=== PATIENT | female | born 1975 | race Caucasian/White ===

== ENCOUNTER 2018-10-18 14:48 | Inpatient (IN) | payer OTHER ==
[2018-10-18 15:30] VITALS: BMI 25.0
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
[2018-10-18] MEDS ORDERED: MAGNESIUM CITRATE 300 ML BOTTLE PO PRN (17:14)
[2018-10-18] MEDS ORDERED: P-EPHED 60MG/TRIPROLIDI 2.5MG TABLET PO PRN (17:14)
[2018-10-18] MEDS ORDERED: MAG HYDROX/AL HYDROX/SIMETH 30 ML UNIT-DOSE CUP PO PRN (17:14)
[2018-10-18] MEDS ORDERED: MAGNESIUM HYDROX 2400MG/30ML ORAL SUSPENSION 30 ML CUP PO PRN (17:14)
[2018-10-18] MEDS ORDERED: MENTHOL/PHENOL 1 EACH UD MM PRN (17:14)
[2018-10-18] MEDS: MELATONIN 5 MG TABLETS PO PRN (21:47)
[2018-10-18] MEDS: THIAMINE HCL 100 MG TABLET (FP) PO SCH (21:50)
[2018-10-19 09:09] LABS: URINE APPEARANCE CLEAR; URINE BILIRUBIN NEGATIVE (NEGATIVE); URINE COLOR YELLOW; URINE GLUCOSE (UA) NEGATIVE (NEGATIVE); URINE KETONE NEGATIVE (NEGATIVE); URINE LEUK ESTERASE NEGATIVE (NEGATIVE); URINE NITRITE NEGATIVE (NEGATIVE); URINE PROTEIN NEGATIVE (NEGATIVE); URINE UROBILINOGEN 0.2 mg/dL (0.2-1.0)
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
[2018-10-19] MEDS ORDERED: PARoxetine HCL 30 MG TABLET PO SCH ×2 (10:15)
[2018-10-19] MEDS: QUEtiapine FUMARATE 100 MG TABLET (FP) PO SCH ×2 (11:15→11:58)
[2018-10-19 11:43] LABS: HEMATOCRIT 35.3 % (32.4-45.2); HEMOGLOBIN 11.6 GM/dL (10.7-15.3); MCH 28.1 pg (25.7-33.7); MCHC 32.8 g/dl (32.0-36.0); MEAN CELL VOLUME 85.7 fl (80-96); MEAN PLT VOLUME 7.9 fl (7.5-11.1); PLATELET COUNT 375 K/MM3 (134-434); RBC 4.12 M/mm3 (3.60-5.2); RDW 16.4 % (11.6-15.6); WHITE BLOOD COUNT 11.6 K/mm3 (4.0-10.0)
[2018-10-19] MEDS ORDERED: PARoxetine HCL 20 MG TABLET ONE (11:45)
[2018-10-19] MEDS ORDERED: PARoxetine HCL 10 MG TABLET ONE (11:45)
[2018-10-19 11:49] LABS: ALBUMIN 3.6 g/dl (3.4-5.0); BILIRUBIN,TOTAL 0.2 mg/dL (0.2-1); BLOOD UREA NITROGEN 7.2 mg/dL (7-18); CALCIUM 8.6 mg/dL (8.5-10.1); CREATININE 0.8 mg/dL (0.55-1.3); POTASSIUM 3.4 mmol/L (3.5-5.1); TOT PROT 6.7 g/dl (6.4-8.2)
[2018-10-19] MEDS: PAROXETINE HCL 10 MG, PAROXETINE HCL 20 MG PO SCH (11:58)
[2018-10-19] MEDS: PRENATAL VITAMINS W/ FOLIC ACID TABLET (FP) PO SCH (11:58)
[2018-10-19] MEDS ORDERED: POTASSIUM CHLORIDE ORAL LIQUID 20 MEQ/15 ML PO ONE (18:00)
[2018-10-19] MEDS: THIAMINE HCL 100 MG TABLET (FP) PO SCH (21:28)
[2018-10-19] MEDS ORDERED: QUEtiapine FUMARATE 100 MG TABLET (FP) ONE (21:29)
[2018-10-19] MEDS: QUEtiapine FUMARATE 300 MG TABLET PO SCH (21:30)
[2018-10-20] MEDS ORDERED: PARoxetine HCL 10 MG TABLET ONE (08:31)
[2018-10-20] MEDS ORDERED: PARoxetine HCL 20 MG TABLET ONE (08:31)
[2018-10-20] MEDS: PAROXETINE HCL 10 MG, PAROXETINE HCL 20 MG PO SCH (09:00)
[2018-10-20] MEDS: QUEtiapine FUMARATE 100 MG TABLET (FP) PO SCH (09:00)
[2018-10-20] MEDS: PRENATAL VITAMINS W/ FOLIC ACID TABLET (FP) PO SCH (09:00)
[2018-10-20 10:11] LABS: POTASSIUM 3.9 mmol/L (3.5-5.1)
--- NOTE | 2018-10-20 21:16 | PN ---
[facility] Progress Note Note: Psychiatry Attending's note (follow-up) : Case endorsed to typewriter tester on 10/19/18. By psychiatric nurse practitioner, Jaspal Antoine. Chart reviewed. Spoke via telephone with the patient. Conversation witnessed by [id number] female staff. Ms Bates confirms her diagnosis of bipolar disorder. Reports treatment with lithium for past three years. Admits to sporadic adherence to that medication. " I take it for one month, then I stop for a month or two and start again." Patient reports also that she " doubles up to make up " for missed doses. This practice has resulted in an episode of lithium toxicity last month. Which requires admission to the medical unit. [place] level belem to 2.5 (self- report). Ms Bates sees a private psychiatrist, Dr Evangelista, in [facility]. She indicates that she is on a regimen of lithium 300 mg po tid. Side effects/benefits of lithotherapy : discussed with patient. Made aware of risk of renal dysfunction, alopecia areata, weight gain, hypothyroidism. Reminded of importance of STRICT adherence and serious consequences inherent to lithium toxicity. Patient expresses reluctance about restarting the drug and requests education about alternate mood stabilizers. Currently lithium level = 0.5 and potassium level back to normal range (K=3.5). Normal renal function (current BMP). Patient agrees to have TFTS in AM (no prior study). Thyroid function tests : ordered. Li is held (patient's request). Will follow.
[2018-10-20] MEDS: THIAMINE HCL 100 MG TABLET (FP) PO SCH (21:27)
[2018-10-20] MEDS: QUEtiapine FUMARATE 300 MG TABLET PO SCH (21:27)
[2018-10-21] MEDS ORDERED: PARoxetine HCL 10 MG TABLET ONE (08:28)
[2018-10-21] MEDS ORDERED: PARoxetine HCL 20 MG TABLET ONE (08:28)
[2018-10-21] MEDS: PRENATAL VITAMINS W/ FOLIC ACID TABLET (FP) PO SCH (10:18)
[2018-10-21] MEDS: QUEtiapine FUMARATE 100 MG TABLET (FP) PO SCH (10:18)
[2018-10-21] MEDS: PAROXETINE HCL 10 MG, PAROXETINE HCL 20 MG PO SCH (10:18)
[2018-10-21] MEDS: QUEtiapine FUMARATE 300 MG TABLET PO SCH (21:28)
[2018-10-21] MEDS: THIAMINE HCL 100 MG TABLET (FP) PO SCH (21:28)
[2018-10-22] MEDS ORDERED: PARoxetine HCL 10 MG TABLET ONE (08:52)
[2018-10-22] MEDS ORDERED: PARoxetine HCL 20 MG TABLET ONE (08:52)
[2018-10-22] MEDS: QUEtiapine FUMARATE 100 MG TABLET (FP) PO SCH (10:01)
[2018-10-22] MEDS: PRENATAL VITAMINS W/ FOLIC ACID TABLET (FP) PO SCH (10:01)
[2018-10-22] MEDS: PAROXETINE HCL 10 MG, PAROXETINE HCL 20 MG PO SCH (10:01)
[2018-10-22] MEDS: THIAMINE HCL 100 MG TABLET (FP) PO SCH (21:19)
[2018-10-22] MEDS: QUEtiapine FUMARATE 300 MG TABLET PO SCH (21:19)
[2018-10-23] MEDS ORDERED: PARoxetine HCL 10 MG TABLET ONE (09:00)
[2018-10-23] MEDS ORDERED: PARoxetine HCL 20 MG TABLET ONE (09:01)
[2018-10-23] MEDS: QUEtiapine FUMARATE 100 MG TABLET (FP) PO SCH (10:09)
[2018-10-23] MEDS: PRENATAL VITAMINS W/ FOLIC ACID TABLET (FP) PO SCH (10:09)
[2018-10-23] MEDS: PAROXETINE HCL 10 MG, PAROXETINE HCL 20 MG PO SCH (10:09)
--- NOTE | 2018-10-23 10:27 | PN ---
Psychiatric Progress Note Vital Signs: Vital Signs Period Temp Pulse Resp BP Sys/Mendoza Pulse Ox Last 24 Hr 97.6 F 99 17-18 111/69 Date of Session: 10/23/18 Chief Complaint:: " i want to restart my lithium" HPI: Patient reports feeling stable but a "bit hyper". ROS: Patient coherent, alert and oriented X3. Current Medications: Active Medications Generic Name Dose Route Start Last Admin Trade Name Freq PRN Reason Stop Dose Admin Acetaminophen 650 mg 10/18/18 17:14 Tylenol - PO Q4H PRN FEVER Al Hydroxide/Mg Hydroxide 30 ml 10/18/18 17:14 Mylanta Oral Suspension - PO Q6H PRN DYSPEPSIA Eucalyptus/Menthol/Phenol/Sorbitol 1 each 10/18/18 17:14 Cepastat Lozenge - MM Q4H PRN SORE THROAT Hydroxyzine Pamoate 50 mg 10/18/18 17:14 Vistaril - PO Q4H PRN AGITATION Ibuprofen 400 mg 10/18/18 17:14 Motrin - PO Q6H PRN Pain level 4-6 Magnesium Citrate 300 ml 10/18/18 17:14 Citroma - PO Q48H PRN CONSTIPATION Magnesium Hydroxide 30 ml 10/18/18 17:14 Milk Of Magnesia - PO DAILY PRN CONSTIPATION Melatonin 5 mg 10/18/18 22:00 10/18/18 21:47 Melatonin PO 5 mg HS PRN Administration INSOMNIA Nicotine Polacrilex 2 mg 10/18/18 17:14 Nicorette Gum - BC Q2H PRN NICOTINE REPLACEMENT RX Paroxetine HCl 10 mg/ 30 mg 10/19/18 10:45 10/23/18 10:09 Paroxetine HCl 20 mg PO 30 mg DAILY PAT Administration Multivit/Folic Acid/Iron 1 tab 10/19/18 10:00 10/23/18 10:09 Vitamins (Sjr) - PO 1 tab DAILY PAT Administration Pseudoephedrine/Triprolidine 1 combo 10/18/18 17:14 Actifed - PO TID PRN NASAL CONGESTION Quetiapine Fumarate 100 mg 10/19/18 10:45 10/23/18 10:09 Seroquel - PO 100 mg DAILY PAT Administration Quetiapine Fumarate 300 mg 10/19/18 22:00 10/22/18 21:19 Seroquel - PO 300 mg HS PAT Administration Thiamine HCl 100 mg 10/18/18 22:00 10/22/18 21:19 Vitamin B1 - PO 100 mg HS PAT Administration Medication(s) Change(s): Yes. Current Side Effect: No Lab tests ordered: No Lab tests reviewed: Yes Provider note:: Patient with a history of alcohol dependence comorbid bipolar disorder. Patient seen by video games storywriter on 10/19/18 and was resumed on Paxil 30mg daily + seroquel 100mg daily + 300 HS. Edon was held due to pending lithium level and potassium level of 3.4. Edon level on 10/20 was 0.5 and potassium level was addressed by the medical team. Potassium level on 10/20/[address] Bella note read and appreciated. As per Dr. Bella's note, patient was relucatant to resume lithium. Today patient is requesting to resume lithium. Patient educated on the benefits and side effects of lithium (Made aware of risk of renal dysfunction, alopecia areata, weight gain, hypothyroidism). Patient also informed of the importance of Strict medication adherence. Will resume lithium 300mg BID (patient is prescribed lithium 300mg TID by provider. Dosages to be increase if current dose is tolerated). Will also d/c seroquel 100mg daily and order Seroquel 200mg daily ( patient is prescribed seroquel 300mg BID but due to nonadherence dosages were adjusted). Benefits and side effects discussed. Verbal consent given. Total face to face time:: 30 Mental Status Exam - Mental Status Exam Alert and Oriented to: Time, Place, Person Cognitive Function: Good Patient Appearance: Well Groomed Mood: Euthymic Affect: Appropriate Patient Behavior: Cooperative Speech Pattern: Appropriate Voice Loudness: Normal Thought Process: Goal Oriented Thought Disorder: Not Present Hallucinations: Denies Suicidal Ideation: Denies Homicidal Ideation: Denies Insight/Judgement: Poor Sleep: Fair Appetite: Fair Muscle strength/Tone: Normal Gait/Station: Normal Psychiatric Treatment Plan - Problem List (1) Alcohol dependence Current Visit: Yes (2) Bipolar disorder Current Visit: Yes
[2018-10-23] MEDS ORDERED: LITHIUM 300 MG PO SCH (10:45)
[2018-10-23] MEDS: LITHIUM CARBONATE 300 MG CAPSULE (FP) PO SCH ×2 (12:21→21:28)
[2018-10-23] MEDS: NICOTINE 21 MG/24 HOURS TOPICAL PATCH TD SCH (12:22)
[2018-10-23] MEDS: QUEtiapine FUMARATE 300 MG TABLET PO SCH (21:28)
[2018-10-23] MEDS: THIAMINE HCL 100 MG TABLET (FP) PO SCH (21:28)
[2018-10-24] MEDS ORDERED: PARoxetine HCL 10 MG TABLET ONE (08:50)
[2018-10-24] MEDS ORDERED: PARoxetine HCL 20 MG TABLET ONE (08:51)
[2018-10-24] MEDS: NICOTINE 21 MG/24 HOURS TOPICAL PATCH TD SCH (09:33)
[2018-10-24] MEDS: PRENATAL VITAMINS W/ FOLIC ACID TABLET (FP) PO SCH (09:33)
[2018-10-24] MEDS: QUEtiapine FUMARATE 200 MG TABLET PO SCH (09:33)
[2018-10-24] MEDS: PAROXETINE HCL 10 MG, PAROXETINE HCL 20 MG PO SCH (09:33)
[2018-10-24] MEDS: LITHIUM CARBONATE 300 MG CAPSULE (FP) PO SCH ×2 (09:33→21:24)
--- NOTE | 2018-10-24 13:28 | PN ---
S Progress Note Note: PATIENT SEEN TO DISCUSS VIVITROL MAT. PATIENT STATES HAS HX OF ETOH USE DISORDER SINCE AGE 31 AND DRINKS UP TO 2 PINTS OF LIQUOR DAILY. PRESENTS ON
--- NOTE | 2018-10-24 14:23 | PN ---
[facility] Progress Note Note: Patient seen for request to start Vivitrol MAT for ETOH dependence. Patient states she starting drinking ETOH age 31 and drinks up to 2 pints of Vodka daily. Patient denies hx of seizures, falls. Reports hx of blackouts. Patient was admitted to rehab on 10/18/18 and is interested in Vivitrol treatment. Patient explained medication dose, side effects, monitoring and protocol procedure for initiating Vivitrol. Patient to be linked to outpatient program in [place], [place] prior to starting Naloxone challenge and referred to Counselor, Penelope. KASSIDY Laguna updated on discussion with patient. Provider to follow up with patient once connection to outpatient program made. Laboratory Tests 10/18/18 10/18/18 10/19/18 08:55 16:50 08:30 WBC RBC Hgb Hct MCV MCH MCHC RDW Plt Count MPV Sodium 138 Potassium 3.4 L Chloride 108 H Carbon Dioxide 21 Anion Gap 10 BUN 7.2 Creatinine 0.8 Est GFR (CKD-EPI)AfAm 103.19 Est GFR (CKD-EPI)NonAf 89.04 Random Glucose 119 H Calcium 8.6 Total Bilirubin 0.2 AST 11 L ALT 23 Alkaline Phosphatase 84 Total Protein 6.7 Albumin 3.6 TSH Urine Color Yellow Urine Appearance Clear Urine pH 8.0 Ur Specific [place] 1.009 L Urine Protein Negative Urine Glucose (UA) Negative Urine Ketones Negative Urine Blood Negative Urine Nitrite Negative Urine Bilirubin Negative Urine Urobilinogen 0.2 Ur Leukocyte Esterase Negative POC Urine HCG, Qual Negative Kief RPR Titer 10/19/18 10/19/18 10/19/18 08:30 08:40 09:30 WBC 11.6 H RBC 4.12 Hgb 11.6 Hct 35.3 MCV 85.7 MCH 28.1 MCHC 32.8 RDW 16.4 H Plt Count 375 MPV 7.9 Sodium Potassium Chloride Carbon Dioxide Anion Gap BUN Creatinine Est GFR (CKD-EPI)AfAm Est GFR (CKD-EPI)NonAf Random Glucose Calcium Total Bilirubin AST ALT Alkaline Phosphatase Total Protein Albumin TSH Urine Color Urine Appearance Urine pH Ur Specific [place] Urine Protein Urine Glucose (UA) Urine Ketones Urine Blood Urine Nitrite Urine Bilirubin Urine Urobilinogen Ur Leukocyte Esterase POC Urine HCG, Qual Kief 0.5 L RPR Titer Nonreactive 10/20/18 10/21/18 07:50 05:50 WBC RBC Hgb Hct MCV MCH MCHC RDW Plt Count MPV Sodium Potassium 3.9 Chloride Carbon Dioxide Anion Gap BUN Creatinine Est GFR (CKD-EPI)AfAm Est GFR (CKD-EPI)NonAf Random Glucose Calcium Total Bilirubin AST ALT Alkaline Phosphatase Total Protein Albumin TSH 2.18 Cancelled Urine Color Urine Appearance Urine pH Ur Specific [place] Urine Protein Urine Glucose (UA) Urine Ketones Urine Blood Urine Nitrite Urine Bilirubin Urine Urobilinogen Ur Leukocyte Esterase POC Urine HCG, Qual Kief RPR Titer Vital Signs Temperature 97.8 F 10/24/18 07:14 Pulse Rate 98 H 10/24/18 07:14 Respiratory Rate 18 10/24/18 07:14 Blood Pressure 135/81 10/24/18 07:14 O2 Sat by Pulse Oximetry (%)
--- NOTE | 2018-10-24 18:11 | PN ---
Psychiatric Progress Note Vital Signs: Vital Signs Period Temp Pulse Resp BP Sys/Mendoza Pulse Ox Last 24 Hr 97.8 F 98 18-18 135/81 Date of Session: 10/24/18 Chief Complaint:: " Increase in Carlos" HPI: Patient admitted to 3E for alcohol dependence co-morbid bipolar disorder. ROS: Patient coherent, alert and oriented X3. Current Medications: Active Medications Generic Name Dose Route Start Last Admin Trade Name Freq PRN Reason Stop Dose Admin Acetaminophen 650 mg 10/18/18 17:14 Tylenol - PO Q4H PRN FEVER Al Hydroxide/Mg Hydroxide 30 ml 10/18/18 17:14 Mylanta Oral Suspension - PO Q6H PRN DYSPEPSIA Eucalyptus/Menthol/Phenol/Sorbitol 1 each 10/18/18 17:14 Cepastat Lozenge - MM Q4H PRN SORE THROAT Hydroxyzine Pamoate 50 mg 10/18/18 17:14 Vistaril - PO Q4H PRN AGITATION Ibuprofen 400 mg 10/18/18 17:14 Motrin - PO Q6H PRN Pain level 4-6 [place] Carbonate 300 mg 10/23/18 11:15 10/24/18 09:33 Eskalith - PO 300 mg BID PAT Administration Magnesium Citrate 300 ml 10/18/18 17:14 Citroma - PO Q48H PRN CONSTIPATION Magnesium Hydroxide 30 ml 10/18/18 17:14 Milk Of Magnesia - PO DAILY PRN CONSTIPATION Melatonin 5 mg 10/18/18 22:00 10/18/18 21:47 Melatonin PO 5 mg HS PRN Administration INSOMNIA Nicotine 21 mg 10/23/18 10:00 10/24/18 09:33 Nicoderm Patch - TD 21 mg DAILY PAT Administration Nicotine Polacrilex 2 mg 10/18/18 17:14 Nicorette Gum - BC Q2H PRN NICOTINE REPLACEMENT RX Paroxetine HCl 10 mg/ 30 mg 10/19/18 10:45 10/24/18 09:33 Paroxetine HCl 20 mg PO 30 mg DAILY PAT Administration Multivit/Folic Acid/Iron 1 tab 10/19/18 10:00 10/24/18 09:33 Vitamins (Sjr) - PO 1 tab DAILY PAT Administration Pseudoephedrine/Triprolidine 1 combo 10/18/18 17:14 Actifed - PO TID PRN NASAL CONGESTION Quetiapine Fumarate 300 mg 10/19/18 22:00 10/23/18 21:28 Seroquel - PO 300 mg HS PAT Administration Quetiapine Fumarate 200 mg 10/24/18 10:00 10/24/18 09:33 Seroquel - PO 200 mg DAILY PAT Administration Thiamine HCl 100 mg 10/18/18 22:00 10/23/18 21:28 Vitamin B1 - PO 100 mg HS PAT Administration Medication(s) Change(s): Yes. Current Side Effect: No Lab tests ordered: No Lab tests reviewed: Yes Provider note:: Patient able to tolerate current psychotropic medication regiman of seroquel 200mg daily + 300mg HS + [place] 300mg BID. Patient is coherent, alert and oriented X3. No oversedation noted. Patient in agreement to increase in evening lithium dose to 600mg HS. Patient is prescribed lithium 300mg TID by outside provider. Will order lithium level for 10/27/18. Benefits and side effects discussed. Verbal consent given. Total face to face time:: 25 Mental Status Exam - Mental Status Exam Alert and Oriented to: Time, Place, Person Cognitive Function: Good Patient Appearance: Well Groomed Mood: Euthymic Affect: Mood Congruent Patient Behavior: Appropriate, Cooperative Speech Pattern: Appropriate Voice Loudness: Normal Thought Process: Goal Oriented Thought Disorder: Not Present Hallucinations: Denies Suicidal Ideation: Denies Homicidal Ideation: Denies Insight/Judgement: Poor Sleep: Fair Appetite: Fair Muscle strength/Tone: Normal Gait/Station: Normal Psychiatric Treatment Plan - Problem List (1) Alcohol dependence Current Visit: Yes (2) Bipolar disorder Current Visit: Yes
[2018-10-24] MEDS: THIAMINE HCL 100 MG TABLET (FP) PO SCH (21:23)
[2018-10-24] MEDS: QUEtiapine FUMARATE 300 MG TABLET PO SCH (21:23)
[2018-10-24] MEDS: hydrOXYzine PAMOATE 50 MG CAPSULE (FP) PO PRN (21:24)
[2018-10-25] MEDS: hydrOXYzine PAMOATE 50 MG CAPSULE (FP) PO PRN ×2 (06:12→16:02)
[2018-10-25] MEDS: IBUPROFEN 400 MG TABLET (FP) PO PRN ×2 (08:39→22:07)
[2018-10-25] MEDS ORDERED: PARoxetine HCL 10 MG TABLET ONE (08:53)
[2018-10-25] MEDS ORDERED: PARoxetine HCL 20 MG TABLET ONE (08:53)
[2018-10-25] MEDS: PAROXETINE HCL 10 MG, PAROXETINE HCL 20 MG PO SCH (09:47)
[2018-10-25] MEDS: LITHIUM CARBONATE 300 MG CAPSULE (FP) PO SCH ×2 (09:47→21:17)
[2018-10-25] MEDS: NICOTINE 21 MG/24 HOURS TOPICAL PATCH TD SCH (09:47)
[2018-10-25] MEDS: PRENATAL VITAMINS W/ FOLIC ACID TABLET (FP) PO SCH (09:47)
[2018-10-25] MEDS: QUEtiapine FUMARATE 200 MG TABLET PO SCH (09:47)
[2018-10-25] MEDS: NICOTINE POLACRILEX 2 MG GUM BC PRN (19:41)
[2018-10-25] MEDS: THIAMINE HCL 100 MG TABLET (FP) PO SCH (21:17)
[2018-10-25] MEDS: QUEtiapine FUMARATE 300 MG TABLET PO SCH (21:17)
[2018-10-26] MEDS: hydrOXYzine PAMOATE 50 MG CAPSULE (FP) PO PRN ×5 (00:42→19:03)
[2018-10-26] MEDS: NICOTINE POLACRILEX 2 MG GUM BC PRN ×5 (00:43→22:19)
[2018-10-26] MEDS: IBUPROFEN 400 MG TABLET (FP) PO PRN (04:27)
[2018-10-26] MEDS ORDERED: PARoxetine HCL 10 MG TABLET ONE (08:43)
[2018-10-26] MEDS ORDERED: PARoxetine HCL 20 MG TABLET ONE (08:43)
[2018-10-26] MEDS: NICOTINE 21 MG/24 HOURS TOPICAL PATCH TD SCH (09:10)
[2018-10-26] MEDS: LITHIUM CARBONATE 300 MG CAPSULE (FP) PO SCH ×2 (09:10→21:03)
[2018-10-26] MEDS: PAROXETINE HCL 10 MG, PAROXETINE HCL 20 MG PO SCH (09:11)
[2018-10-26] MEDS: PRENATAL VITAMINS W/ FOLIC ACID TABLET (FP) PO SCH (09:11)
[2018-10-26] MEDS: QUEtiapine FUMARATE 200 MG TABLET PO SCH (09:11)
--- NOTE | 2018-10-26 14:23 | PN ---
[facility] Progress Note (SOAP) Subjective: Patient seen for further discussion about starting Vivitrol MAT for ETOH dependence. Reports hx of blackouts. Patient was admitted to rehab on 10/18/18 and is interested in Vivitrol treatment. Objective: A+O x3, no neurological deficits noted. Abd soft, non-tender, non-distended, liver non-palpable. 10/26/18 14:23 CBC, BMP 10/19/18 08:40 10/20/18 07:50 Vital Signs (72 hours) 10/24/18 10/24/18 10/24/18 00:30 03:30 07:14 Temperature 97.8 F Pulse Rate 98 H Respiratory 18 18 18 Rate Blood Pressure 135/81 10/25/18 10/25/18 10/25/18 03:30 07:01 09:13 Temperature 97.8 F Pulse Rate 99 H 125 H Respiratory 18 18 18 Rate Blood Pressure 112/75 107/74 10/26/18 10/26/18 03:30 07:08 Temperature 98.0 F Pulse Rate 110 H Respiratory 18 18 Rate Blood Pressure 108/75 10/26/18 14:24 Assessment: ETOH Dependence. 10/26/18 14:24 Plan: This provider explained medication dose, side effects, monitoring and protocol procedure for initiating Vivitrol. Patient needs to be linked to outpatient program in [place], [place] prior to starting Naloxone challenge; Counselor, Penelope to meet with patient today. KASSIDY Laguna updated on discussion with patient. Provider to follow up with patient once connection to outpatient program made, possibly Monday, 10/29.
[2018-10-26] MEDS: QUEtiapine FUMARATE 300 MG TABLET PO SCH (21:02)
[2018-10-26] MEDS: THIAMINE HCL 100 MG TABLET (FP) PO SCH (21:02)
[2018-10-26] MEDS: ACETAMINOPHEN 325 MG TABLET (FP) PO PRN (22:18)
[2018-10-27] MEDS: hydrOXYzine PAMOATE 50 MG CAPSULE (FP) PO PRN ×3 (04:13→16:46)
[2018-10-27] MEDS: NICOTINE POLACRILEX 2 MG GUM BC PRN ×3 (04:14→16:46)
[2018-10-27] MEDS: IBUPROFEN 400 MG TABLET (FP) PO PRN (08:46)
[2018-10-27] MEDS ORDERED: PARoxetine HCL 10 MG TABLET ONE (09:13)
[2018-10-27] MEDS ORDERED: PARoxetine HCL 20 MG TABLET ONE (09:13)
[2018-10-27] MEDS: NICOTINE 21 MG/24 HOURS TOPICAL PATCH TD SCH (10:08)
[2018-10-27] MEDS: QUEtiapine FUMARATE 200 MG TABLET PO SCH (10:08)
[2018-10-27] MEDS: PRENATAL VITAMINS W/ FOLIC ACID TABLET (FP) PO SCH (10:08)
[2018-10-27] MEDS: PAROXETINE HCL 10 MG, PAROXETINE HCL 20 MG PO SCH (10:09)
[2018-10-27] MEDS: LITHIUM CARBONATE 300 MG CAPSULE (FP) PO SCH ×2 (10:09→21:34)
[2018-10-27] MEDS: THIAMINE HCL 100 MG TABLET (FP) PO SCH (21:34)
[2018-10-27] MEDS: QUEtiapine FUMARATE 300 MG TABLET PO SCH (21:35)
[2018-10-28] MEDS: hydrOXYzine PAMOATE 50 MG CAPSULE (FP) PO PRN ×2 (04:43→09:52)
[2018-10-28] MEDS: NICOTINE POLACRILEX 2 MG GUM BC PRN ×3 (04:44→13:33)
[2018-10-28] MEDS: IBUPROFEN 400 MG TABLET (FP) PO PRN ×2 (07:40→13:32)
[2018-10-28] MEDS ORDERED: PARoxetine HCL 10 MG TABLET ONE (08:52)
[2018-10-28] MEDS ORDERED: PARoxetine HCL 20 MG TABLET ONE (08:52)
[2018-10-28] MEDS: PRENATAL VITAMINS W/ FOLIC ACID TABLET (FP) PO SCH (09:51)
[2018-10-28] MEDS: PAROXETINE HCL 10 MG, PAROXETINE HCL 20 MG PO SCH (09:51)
[2018-10-28] MEDS: NICOTINE 21 MG/24 HOURS TOPICAL PATCH TD SCH (09:51)
[2018-10-28] MEDS: QUEtiapine FUMARATE 200 MG TABLET PO SCH (09:52)
[2018-10-28] MEDS: LITHIUM CARBONATE 300 MG CAPSULE (FP) PO SCH ×2 (09:52→21:29)
[2018-10-28] MEDS: THIAMINE HCL 100 MG TABLET (FP) PO SCH (21:29)
[2018-10-28] MEDS: QUEtiapine FUMARATE 300 MG TABLET PO SCH (21:30)
[2018-10-28] MEDS ORDERED: PT OWN MED DRAWER 7, Y5N ONE (21:55)
[2018-10-29] MEDS: IBUPROFEN 400 MG TABLET (FP) PO PRN ×2 (01:19→09:06)
[2018-10-29] MEDS: hydrOXYzine PAMOATE 50 MG CAPSULE (FP) PO PRN ×2 (01:19→09:06)
[2018-10-29] MEDS: NICOTINE POLACRILEX 2 MG GUM BC PRN ×2 (04:43→09:58)
[2018-10-29] MEDS ORDERED: PARoxetine HCL 10 MG TABLET ONE (08:31)
[2018-10-29] MEDS ORDERED: PARoxetine HCL 20 MG TABLET ONE (08:32)
[2018-10-29] MEDS ORDERED: PT OWN MED DRAWER 7, Y5N ONE (08:33)
[2018-10-29] MEDS: PRENATAL VITAMINS W/ FOLIC ACID TABLET (FP) PO SCH (09:06)
[2018-10-29] MEDS: LITHIUM CARBONATE 300 MG CAPSULE (FP) PO SCH ×2 (09:06→21:19)
[2018-10-29] MEDS: NICOTINE 21 MG/24 HOURS TOPICAL PATCH TD SCH (09:07)
[2018-10-29] MEDS: PAROXETINE HCL 10 MG, PAROXETINE HCL 20 MG PO SCH (09:07)
[2018-10-29] MEDS: QUEtiapine FUMARATE 200 MG TABLET PO SCH (09:07)
[2018-10-29] MEDS: LIDOCAINE 5% TOPICAL PATCH TP SCH (10:59)
[2018-10-29] MEDS: QUEtiapine FUMARATE 300 MG TABLET PO SCH (21:19)
[2018-10-29] MEDS: LIDOCAINE PATCH REMOVAL MC SCH (21:19)
[2018-10-29] MEDS: THIAMINE HCL 100 MG TABLET (FP) PO SCH (21:19)
[2018-10-30] MEDS: IBUPROFEN 400 MG TABLET (FP) PO PRN ×2 (07:25→18:01)
[2018-10-30] MEDS: NICOTINE POLACRILEX 2 MG GUM BC PRN ×3 (07:26→18:03)
[2018-10-30] MEDS ORDERED: PARoxetine HCL 10 MG TABLET ONE (08:31)
[2018-10-30] MEDS ORDERED: PARoxetine HCL 20 MG TABLET ONE (08:31)
[2018-10-30] MEDS: PRENATAL VITAMINS W/ FOLIC ACID TABLET (FP) PO SCH (09:28)
[2018-10-30] MEDS: PAROXETINE HCL 10 MG, PAROXETINE HCL 20 MG PO SCH (09:28)
[2018-10-30] MEDS: LITHIUM CARBONATE 300 MG CAPSULE (FP) PO SCH ×2 (09:28→21:07)
[2018-10-30] MEDS: NICOTINE 21 MG/24 HOURS TOPICAL PATCH TD SCH (09:28)
[2018-10-30] MEDS: hydrOXYzine PAMOATE 50 MG CAPSULE (FP) PO PRN ×2 (09:29→18:01)
[2018-10-30] MEDS: LIDOCAINE 5% TOPICAL PATCH TP SCH (09:29)
[2018-10-30] MEDS: QUEtiapine FUMARATE 200 MG TABLET PO SCH (09:29)
--- NOTE | 2018-10-30 13:30 | PN ---
Psychiatric Progress Note Vital Signs: Vital Signs Period Temp Pulse Resp BP Sys/M[place]za Pulse Ox Last 24 Hr 99.2 F 100 18-18 131/89 Date of Session: 10/30/18 Chief Complaint:: Follow up HPI: Patient admitted to for alcohol dependence co-morbid Bipolar disorder. ROS: Patient coherent, alert and oriented X 3. Current Medications: Active Medications Generic Name Dose Route Start Last Admin Trade Name Freq PRN Reason Stop Dose Admin Acetaminophen 650 mg 10/18/18 17:14 10/26/18 22:18 Tylenol - PO 650 mg Q4H PRN Administration FEVER Al Hydroxide/Mg Hydroxide 30 ml 10/18/18 17:14 Mylanta Oral Suspension - PO Q6H PRN DYSPEPSIA Eucalyptus/Menthol/Phenol/Sorbitol 1 each 10/18/18 17:14 Cepastat Lozenge - MM Q4H PRN SORE THROAT Hydroxyzine Pamoate 50 mg 10/18/18 17:14 10/30/18 09:29 Vistaril - PO 50 mg Q4H PRN Administration AGITATION Ibuprofen 400 mg 10/18/18 17:14 10/30/18 07:25 Motrin - PO 400 mg Q6H PRN Administration Pain level 4-6 Lidocaine 1 patch 10/29/18 10:00 10/30/18 09:29 Lidoderm Patch - TP 1 patch DAILY PAT Administration [place] Carbonate 300 mg 10/25/18 10:00 10/30/18 09:28 Eskalith - PO 300 mg DAILY PAT Administration [place] Carbonate 600 mg 10/24/18 22:00 10/29/18 21:19 Eskalith - PO 600 mg HS PAT Administration Magnesium Citrate 300 ml 10/18/18 17:14 Citroma - PO Q48H PRN CONSTIPATION Magnesium Hydroxide 30 ml 10/18/18 17:14 Milk Of Magnesia - PO DAILY PRN CONSTIPATION Melatonin 5 mg 10/18/18 22:00 10/18/18 21:47 Melatonin PO 5 mg HS PRN Administration INSOMNIA Miscellaneous 1 each 10/29/18 22:00 10/29/18 21:19 Lidoderm Patch Removal MC 1 each DAILY@2200 PAT Administration Nicotine 21 mg 10/23/18 10:00 10/30/18 09:28 Nicoderm Patch - TD 21 mg DAILY PAT Administration Nicotine Polacrilex 2 mg 10/18/18 17:14 10/30/18 09:31 Nicorette Gum - BC 2 mg Q2H PRN Administration NICOTINE REPLACEMENT RX Paroxetine HCl 10 mg/ 30 mg 10/19/18 10:45 10/30/18 09:28 Paroxetine HCl 20 mg PO 30 mg DAILY PAT Administration Multivit/Folic Acid/Iron 1 tab 10/19/18 10:00 10/30/18 09:28 Vitamins (Sjr) - PO 1 tab DAILY PAT Administration Pseudoephedrine/Triprolidine 1 combo 10/18/18 17:14 Actifed - PO TID PRN NASAL CONGESTION Quetiapine Fumarate 300 mg 10/19/18 22:00 10/29/18 21:19 Seroquel - PO 300 mg HS PAT Administration Quetiapine Fumarate 200 mg 10/24/18 10:00 10/30/18 09:29 Seroquel - PO 200 mg DAILY PAT Administration Thiamine HCl 100 mg 10/18/18 22:00 10/29/18 21:19 Vitamin B1 - PO 100 mg HS PAT Administration Medication(s) Change(s): Yes. Current Side Effect: No Lab tests ordered: No Lab tests reviewed: Yes Provider note:: Patient seen today for medication management. Patient is currently prescribed seroquel 200mg daily + 300 HS + [place] 300mg daily + 600mg HS. Patient reports ongoing anxiety but states her mood is "ok". Patient coherent, alert and oriented. Upon approach patient appeared restless and anxious. STAT lithium level ordered as the lithum level ordered on 10/27/18 is still pending. No toxicity symptoms noted. Will increase seroquel morning dose to 300mg. Patient is prescribed seroquel 300mg BID by the outside mental health provider. Patient in agreement to an increase in seroquel. Will d/c Seroquel 200mg daily and order Seroquel 300mg daily. Total face to face time:: 25 Mental Status Exam - Mental Status Exam Alert and Oriented to: Time, Place, Person Cognitive Function: Good Patient Appearance: Well Groomed Mood: Anxious Affect: Appropriate Patient Behavior: Cooperative Speech Pattern: Appropriate Voice Loudness: Normal Thought Process: Goal Oriented Thought Disorder: Not Present Hallucinations: Denies Suicidal Ideation: Denies Homicidal Ideation: Denies Insight/Judgement: Poor Sleep: Fair Appetite: Good Muscle strength/Tone: Normal Gait/Station: Normal Psychiatric Treatment Plan - Problem List (1) Alcohol dependence Comment: .. (2) Bipolar disorder Comment: ..
[2018-10-30] MEDS ORDERED: PT OWN MED DRAWER 7, Y5N ONE (20:32)
[2018-10-30] MEDS: QUEtiapine FUMARATE 300 MG TABLET PO SCH (21:07)
[2018-10-30] MEDS: THIAMINE HCL 100 MG TABLET (FP) PO SCH (21:07)
[2018-10-30] MEDS: LIDOCAINE PATCH REMOVAL MC SCH (21:08)
[2018-10-31] MEDS: hydrOXYzine PAMOATE 50 MG CAPSULE (FP) PO PRN ×2 (06:28→19:30)
[2018-10-31] MEDS: NICOTINE POLACRILEX 2 MG GUM BC PRN (06:29)
[2018-10-31] MEDS: IBUPROFEN 400 MG TABLET (FP) PO PRN ×2 (08:45→16:53)
[2018-10-31] MEDS ORDERED: PARoxetine HCL 10 MG TABLET ONE (09:12)
[2018-10-31] MEDS ORDERED: PARoxetine HCL 20 MG TABLET ONE (09:13)
[2018-10-31] MEDS: PRENATAL VITAMINS W/ FOLIC ACID TABLET (FP) PO SCH (09:52)
[2018-10-31] MEDS: LITHIUM CARBONATE 300 MG CAPSULE (FP) PO SCH ×2 (09:52→21:15)
[2018-10-31] MEDS: LIDOCAINE 5% TOPICAL PATCH TP SCH (09:52)
[2018-10-31] MEDS: NICOTINE 21 MG/24 HOURS TOPICAL PATCH TD SCH (09:52)
[2018-10-31] MEDS: PAROXETINE HCL 10 MG, PAROXETINE HCL 20 MG PO SCH (09:53)
[2018-10-31] MEDS: QUEtiapine FUMARATE 300 MG TABLET PO SCH ×2 (09:53→21:15)
--- NOTE | 2018-10-31 11:12 | PN ---
[facility] Progress Note (SOAP) Subjective: patient to be discharged tomorrow. Hospital course; patient attended group therapy, individual counseling with counselor, attended AA meetings and work on steps 1-3. She was compliant with her medication regimen. The patient expressed interest in starting Vivitrol and was educated on the medication and its effects. By time she made the decision to start Vivitrol, we were unable to do so because she was to be discharged the next day. Patient intends to follow up with Vivitrol treatment at her outpatient facility. Objective: A+O x3, no neurological deficits noted, heart rate regular, lungs clear, abd soft, non-tender, non-distended, +BS. Skin clear. Full weight bearing and steady ambulation. 10/31/18 11:06 CBC, BMP 10/19/18 08:40 10/20/18 07:50 Laboratory Tests 10/18/18 10/18/18 10/19/18 08:55 16:50 08:30 WBC RBC Hgb Hct MCV MCH MCHC RDW Plt Count MPV Sodium 138 Potassium 3.4 L Chloride 108 H Carbon Dioxide 21 Anion Gap 10 BUN 7.2 Creatinine 0.8 Est GFR (CKD-EPI)AfAm 103.19 Est GFR (CKD-EPI)NonAf 89.04 Random Glucose 119 H Calcium 8.6 Total Bilirubin 0.2 AST 11 L ALT 23 Alkaline Phosphatase 84 Total Protein 6.7 Albumin 3.6 TSH Urine Color Yellow Urine Appearance Clear Urine pH 8.0 Ur Specific [place] 1.009 L Urine Protein Negative Urine Glucose (UA) Negative Urine Ketones Negative Urine Blood Negative Urine Nitrite Negative Urine Bilirubin Negative Urine Urobilinogen 0.2 Ur Leukocyte Esterase Negative POC Urine HCG, Qual Negative [place] RPR Titer 10/19/18 10/19/18 10/19/18 08:30 08:40 09:30 WBC 11.6 H RBC 4.12 Hgb 11.6 Hct 35.3 MCV 85.7 MCH 28.1 MCHC 32.8 RDW 16.4 H Plt Count 375 MPV 7.9 Sodium Potassium Chloride Carbon Dioxide Anion Gap BUN Creatinine Est GFR (CKD-EPI)AfAm Est GFR (CKD-EPI)NonAf Random Glucose Calcium Total Bilirubin AST ALT Alkaline Phosphatase Total Protein Albumin TSH Urine Color Urine Appearance Urine pH Ur Specific [place] Urine Protein Urine Glucose (UA) Urine Ketones Urine Blood Urine Nitrite Urine Bilirubin Urine Urobilinogen Ur Leukocyte Esterase POC Urine HCG, Qual [place] 0.5 L RPR Titer Nonreactive 10/20/18 10/21/18 10/30/18 07:50 05:50 12:00 WBC RBC Hgb Hct MCV MCH MCHC RDW Plt Count MPV Sodium Potassium 3.9 Chloride Carbon Dioxide Anion Gap BUN Creatinine Est GFR (CKD-EPI)AfAm Est GFR (CKD-EPI)NonAf Random Glucose Calcium Total Bilirubin AST ALT Alkaline Phosphatase Total Protein Albumin TSH 2.18 Cancelled Urine Color Urine Appearance Urine pH Ur Specific [place] Urine Protein Urine Glucose (UA) Urine Ketones Urine Blood Urine Nitrite Urine Bilirubin Urine Urobilinogen Ur Leukocyte Esterase POC Urine HCG, Qual [place] 0.6 RPR Titer Vital Signs (72 hours) 10/29/18 10/29/18 10/29/18 00:30 03:30 06:54 Temperature 97.3 F L Pulse Rate 96 H Respiratory 18 18 16 Rate Blood Pressure 124/84 10/30/18 10/30/18 10/30/18 00:30 03:30 06:51 Temperature 99.2 F Pulse Rate 100 H Respiratory 18 18 18 Rate Blood Pressure 131/89 10/31/18 10/31/18 10/31/18 00:30 03:30 06:57 Temperature 98.1 F Pulse Rate 98 H Respiratory 18 18 18 Rate Blood Pressure 125/83 Assessment: Medically stable for discharge Discharge Dx: ETOH dependence 10/31/18 11:08 Plan: Discharge plan; Patient will go to [facility] program. While there she will start Vivitrol treatment. She will also receive medical care at [facility] outpatient. No prescriptions to be transmitted to the pharmacy.
--- NOTE | 2018-10-31 15:49 | PN ---
[facility] Progress Note Note: Patient's lithium level reviewed. [place] level 0.6
--- NOTE | 2018-10-31 15:50 | PN ---
S Progress Note Note: Psychiatric nurse practitioner note: Patient scheduled for discharge on 11/01/18. A 30 day prescription of paxil 30mg + Seroquel 300mg BID + [place] 300mg daily + 600mg HS was electronically sent to [email or web address], [address] [place], [place] [id number].
[2018-10-31] MEDS: ACETAMINOPHEN 325 MG TABLET (FP) PO PRN (19:30)
[2018-10-31] MEDS: MELATONIN 5 MG TABLETS PO PRN (21:14)
[2018-10-31] MEDS: THIAMINE HCL 100 MG TABLET (FP) PO SCH (21:15)
[2018-10-31] MEDS: LIDOCAINE PATCH REMOVAL MC SCH (21:16)
[2018-11-01] MEDS: ACETAMINOPHEN 325 MG TABLET (FP) PO PRN (06:34)
[2018-11-01] MEDS: hydrOXYzine PAMOATE 50 MG CAPSULE (FP) PO PRN (06:35)
[2018-11-01] MEDS: NICOTINE POLACRILEX 2 MG GUM BC PRN (06:35)
[2018-11-01 06:55] VITALS: TEMP 99.4
[2018-11-01] MEDS ORDERED: PARoxetine HCL 10 MG TABLET ONE (08:51)
[2018-11-01] MEDS ORDERED: PARoxetine HCL 20 MG TABLET ONE (08:51)
[2018-11-01] MEDS: LITHIUM CARBONATE 300 MG CAPSULE (FP) PO SCH (09:03)
[2018-11-01 09:04] VITALS: BP 122/76; PULSE 116
[2018-11-01] MEDS: PRENATAL VITAMINS W/ FOLIC ACID TABLET (FP) PO SCH (09:04)
[2018-11-01] MEDS: PAROXETINE HCL 10 MG, PAROXETINE HCL 20 MG PO SCH (09:04)
[2018-11-01] MEDS: LIDOCAINE 5% TOPICAL PATCH TP SCH (09:04)
[2018-11-01] MEDS: QUEtiapine FUMARATE 300 MG TABLET PO SCH (09:05)
[2018-11-01] MEDS: NICOTINE 21 MG/24 HOURS TOPICAL PATCH TD SCH (09:05)
== END 2018-11-01 09:45 | disposition home or self-care (01) | DRG 772 ==
LOC: YASAS 14:48 → Y3E 18:37
PROVIDERS: ADMIT Neuromusculoskeletal Medicine & OMM; ATTEND Neuromusculoskeletal Medicine & OMM
PROC: HZ42ZZZ Group Counseling for Substance Abuse Treatment, Cognitive-Behavioral (ICD-10-PCS; principal; 2018-10-18)
DX: F10.20 Alcohol dependence, uncomplicated (principal); F17.210 Nicotine dependence, cigarettes, uncomplicated; F31.9 Bipolar disorder, unspecified; Z91.013 Allergy to seafood
CPT/HCPCS: 36415; 80053; 80178; 81003; 81025; 84132; 84436; 84443; 85027; 86593